=== PATIENT | male | born 1990 | race Caucasian/White ===

== ENCOUNTER 2023-10-10 12:59 | Emergency (ER) | payer MEDICAID, SELFPAY ==
[2023-10-10 13:10] VITALS: BP 167/93; PULSE 70; O2SAT 99; BMI 22.9
--- NOTE | 2023-10-10 13:13 | ED.ALLEREA1 ---
HPI - Allergic Reaction General Chief complaint: Allergic Reaction Stated complaint: BEE STING IN LEFT EYE, ALLERGIC Time Seen by Provider: 10/10/23 13:09 Source: patient Mode of arrival: walk-in Limitations: no limitations History of Present Illness HPI narrative: Patient is a 33-year-old male with a history of bee sting allergy who presents to the emergency department after being stung by multiple bees in the face just prior to arrival, approximately 30 minutes ago. He states he does not have his EpiPen at his current home so his family member drove him directly to the ER. No medications taken prior to arrival. He states he is starting to feel itchy all over but he has not noted any other hives, throat swelling or difficulty breathing. He has moderate facial swelling. He states he feels like he tried to remove several stingers but believes they are still stuck in the face. Related Data Previous Rx's ?Medication ?Instructions ?Recorded epinephrine 0.3 mg/0.3 mL 0.3 mg (0.3 mL) IM ONCE PRN 10/10/23 injection, auto-injector (EpiPen) anaphylaxis #1 ea famotidine 20 mg tablet (Pepcid) 20 mg PO BID #10 tabs 10/10/23 hydroxyzine HCl 25 mg tablet 25 mg PO Q6H PRN itching #20 tabs 10/10/23 methylprednisolone 4 mg tablets in See Rx Instructions .Route 10/10/23 a dose pack (Medrol (Kali)) .COMPLEX #21 ea Allergies Allergy/AdvReac Type Severity Reaction Status Date / Time No Known Drug Allergies Allergy Verified 10/10/23 13:10 Review of Systems ROS Constitutional Denies: fever or chills Ears, nose, mouth, and throat Denies: throat pain or nasal congestion Cardiovascular Denies: chest pain Respiratory Denies: shortness of breath or cough Gastrointestinal Denies: nausea or vomiting Musculoskeletal Denies: back pain or neck pain Integumentary/Breast Reports: itching, redness and skin swelling; Denies: rash Hematologic/Lymphatic Denies: easy bruising or easy bleeding Allergic/Immunologic Reports: facial swelling; Denies: hives, throat swelling or tongue swelling Exam Narrative Exam Narrative: Gen.: Awake, alert, in no distress Head: Normocephalic, atraumatic ENT: Moderate facial and eyelid swelling, no visible or palpable retained stinger. No lip swelling, tongue swelling. Airway widely open and patent. Respiratory: No respiratory distress, no wheezing or rhonchi Extremities: Moves extremities equally Psych: Normal mood and affect Neuro: No focal neuro deficit Skin: Warm, dry, intact; no evidence of diffuse hives or lesions of the skin Constitutional Vital Signs, click to edit/add: Last Vital Signs Pulse 70 10/10/23 13:10 Resp 20 10/10/23 13:10 BP 167/93 H 10/10/23 13:10 Pulse Ox 99 10/10/23 13:10 O2 Del Method Room Air 10/10/23 13:10 Course Vital Signs Vital signs: Vital Signs Pulse Rate 70 10/10/23 13:10 Respiratory Rate 20 10/10/23 13:10 Blood Pressure 167/93 H 10/10/23 13:10 Pulse Oximetry 99 10/10/23 13:10 Oxygen Delivery Method Room Air 10/10/23 13:10 Pulse Rate 70 10/10/23 13:10 Respiratory Rate 20 10/10/23 13:10 Blood Pressure 167/93 H 10/10/23 13:10 Pulse Oximetry 99 10/10/23 13:10 Oxygen Delivery Method Room Air 10/10/23 13:10 MDM - Allergic Reaction MDM Narrative Medical decision making narrative: Patient was given an injection of epi, IV Solu-Medrol, IV fluids, IV Benadryl and IV Pepcid with an albuterol breathing treatment. He was kept on cardiac monitoring. Immediately after medication administration, the patient did have temporary bradycardia, we suspect he may have had a vasovagal episode briefly. He had no syncope, he maintains otherwise normal cardiac monitoring for over 90 minutes after medication administration. He had significant improvement with the medications. He is awake, alert and resting comfortably feeling improved at time of discharge. He will be placed on Medrol Dosepak, hydroxyzine and Pepcid for home and given a new prescription of an EpiPen for home as well. Follow-up with PCP and return to the ER if symptoms change or worsen. SUPERVISED APC VISIT, PHYSICIAN ATTESTATION: Based on the medical record the care appears appropriate. ? Medical Records Attestation: I reviewed the patient's medical records. Discharge Plan Discharge Stand Alone Forms: Portal Instructions Chief Complaint: Allergic Reaction Clinical Impression: Allergic reaction Patient Disposition: Home, Self-Care Time of Disposition Decision: 14:36 Condition: Good Prescriptions / Home Meds: New hydroxyzine HCl 25 mg tablet 25 mg PO Q6H PRN (Reason: itching) Qty: 20 0RF epinephrine [EpiPen] 0.3 mg/0.3 mL auto-injector 0.3 mg IM ONCE PRN (Reason: anaphylaxis) Qty: 1 0RF Rx Instructions: for 2 doses methylprednisolone [Medrol (Kali)] 4 mg tablets,dose pack See Rx Instructions .ROUTE .COMPLEX Qty: 21 0RF Rx Instructions: Taper as directed famotidine [Pepcid] 20 mg tablet 20 mg PO BID Qty: 10 0RF Print Language: Burkinan Instructions: General Allergic Reaction (ED) Referrals: Physician,Non-Staff, MD [Primary Care Provider] - 1 week
[2023-10-10] MEDS: EPINEPHrine 1 MG/10 ML SYRINGE 0.3 MG IM (13:22)
[2023-10-10] MEDS: 0.9 % SODIUM CHLORIDE 1,000 ML 1000 ML IV (13:25)
[2023-10-10] MEDS: METHYLPREDNISOLONE SOD SUCC PF 125 MG/2 ML VIAL IVP (13:26)
[2023-10-10] MEDS: DIPHENHYDRAMINE HCL 50 MG/ML VIAL 25 MG IV (13:30)
[2023-10-10] MEDS: FAMOTIDINE/PF 20 MG/2 ML VIAL IV (13:31)
[2023-10-10] MEDS: ALBUTEROL SULFATE 2.5 MG/3 ML VIAL NEB IH (13:33)
[2023-10-10 13:34] VITALS: PULSE 49; O2SAT 99
[2023-10-10 13:41] VITALS: PULSE 63; O2SAT 100
[2023-10-10 13:56] VITALS: PULSE 60; O2SAT 99
[2023-10-10 14:13] VITALS: BP 137/83; PULSE 60; O2SAT 100
--- NOTE | 2023-10-10 14:14 | PC.NURSE ---
Facial swelling much improved, respirations even and non labored. Patient denies any SOB or any feeling of swelling to mouth, throat, or tongue.
[2023-10-10] MEDS: 0.9 % SODIUM CHLORIDE 1,000 ML 250 ML IV (14:16)
[2023-10-10 14:39] VITALS: PULSE 62; O2SAT 99
== END 2023-10-10 14:52 | disposition home or self-care (01) ==
PROVIDERS: Emergency Provider Emergency Medicine; Family Provider Internal Medicine
DX: T63.441A Toxic effect of venom of bees, accidental (unintentional), initial encounter (principal)
CPT/HCPCS: 94640; 96372; 96374; 96375; 99284; J0171; J1200; J2919